=== PATIENT | male | born 1995 | race Caucasian/White ===

== ENCOUNTER 2016-11-08 15:07 | Observation (INO) | payer BC, OTHER ==
[2016-11-08] MEDS ORDERED: SODIUM CHLORIDE 0.9% 500 ML IV STA (17:10)
--- NOTE | 2016-11-08 17:13 | ED ---
General Adult HPI - General Chief complaint: Abdominal Pain Stated complaint: Poss bowel obstruction Time Seen by Provider: 11/08/16 15:30 Source: patient, RN notes reviewed Mode of arrival: ambulatory Limitations: no limitations - History of Present Illness Initial comments: This a 21-year-old male who was coming from [facility] I spoke with the ER physician there. Patient started having abdominal pain this morning became nauseated and vomited times one went to the hospital he told me he might have a small bowel disruption. The patient has had no previous surgeries no previous bowel problems. Patient states since that time he was released to be transferred here he drove by private car and he states the pain is much improved. Patient denies any nausea currently. Patient denies any diarrhea. Patient states he is still passing gas and a bowel movement this morning. Patient denies any fever chills. Patient denies any chest pain difficulty breathing shortness of breath. Patient denies any back pain. - Related Data Home Medications Medication Instructions Recorded Confirmed No Known Home Medications [No 11/08/16 11/08/16 Known Home Medications] Allergies Allergy/AdvReac Type Severity Reaction Status Date / Time No Known Allergies Allergy Verified 11/08/16 17:41 Review of Systems ROS Statement: Those systems with pertinent positive or pertinent negative responses have been documented in the HPI. ROS Other: All systems not noted in ROS Statement are negative. Past Medical History Past Medical History: No Reported History History of Any Multi-Drug Resistant Organisms: None Reported Past Surgical History: Ear Surgery Past Psychological History: No Psychological Hx Reported Smoking Status: Current every day smoker Past Alcohol Use History: Occasional Past Drug Use History: Marijuana General Exam - General Exam Comments Initial Comments: GENERAL: Patient is well-developed and well-nourished. Patient is nontoxic and well- hydrated and is in mild distress. ENT: Neck is soft and supple. No significant lymphadenopathy is noted. Oropharynx is clear. Moist mucous membranes. Neck has full range of motion without eliciting any pain. EYES: The sclera were anicteric and conjunctiva were pink and moist. Extraocular movements were intact and pupils were equal round and reactive to light. Eyelids were unremarkable. PULMONARY: Unlabored respirations. Good breath sounds bilaterally. No audible rales rhonchi or wheezing was noted. CARDIOVASCULAR: There is a regular rate and rhythm without any murmurs gallops or rubs. ABDOMEN: Soft and nontender with normal bowel sounds. No palpable organomegaly was noted. There is no palpable pulsatile mass. SKIN: Skin is clear with no lesions or rashes and otherwise unremarkable. NEUROLOGIC: Patient is alert and oriented x3. Cranial nerves II through XII are grossly intact. Motor and sensory are also intact. Normal speech, volume and content. Symmetrical smile. MUSCULOSKELETAL: Normal extremities with adequate strength and full range of motion. LYMPHATICS: No significant lymphadenopathy is noted PSYCHIATRIC: Normal psychiatric evaluation. Limitations: no limitations Course Vital Signs 11/08/16 11/08/16 15:29 17:32 Temperature 98.6 F Pulse Rate 78 60 Respiratory 20 16 Rate Blood Pressure 122/87 112/58 O2 Sat by Pulse 98 99 Oximetry Medical Decision Making - Medical Decision Making Patient's KUB did not show any signs of obstruction however the radiologist did look at the films from the other facility and agree that there was a possibility of this partial small bowel structures. I went back into reevaluate the patient his pain had returned and he was vomiting so is at this time that I spoke with Dr. Mejias he agreed to admit the patient I consult to [facility]. - Lab Data Result diagrams: 11/08/16 17:08 11/08/16 17:08 Lab Results 11/08/16 11/08/16 Range/Units 17:08 17:08 WBC 9.5 (3.8-10.6) k/uL RBC 4.90 (4.30-5.90) m/uL Hgb 15.7 (13.0-17.5) gm/dL Hct 44.4 (39.0-53.0) % MCV 90.5 (80.0-100.0) fL MCH 31.9 (25.0-35.0) pg MCHC 35.3 (31.0-37.0) g/dL RDW 12.5 (11.5-15.5) % Plt Count 219 (150-450) k/uL Neutrophils % 61 % Lymphocytes % 28 % Monocytes % 6 % Eosinophils % 2 % Basophils % 0 % Neutrophils # 5.8 (1.3-7.7) k/uL Lymphocytes # 2.7 (1.0-4.8) k/uL Monocytes # 0.6 (0-1.0) k/uL Eosinophils # 0.2 (0-0.7) k/uL Basophils # 0.0 (0-0.2) k/uL Sodium 139 (137-145) mmol/L Potassium 4.2 (3.5-5.1) mmol/L Chloride 106 (98-107) mmol/L Carbon Dioxide 24 (22-30) mmol/L Anion Gap 9 mmol/L BUN 12 (9-20) mg/dL Creatinine 0.90 (0.66-1.25) mg/dL Est GFR (MDRD) Af Amer >60 (>60 ml/min/1.73 sqM) Est GFR (MDRD) Non-Af >60 (>60 ml/min/1.73 sqM) Glucose 84 (74-99) mg/dL Calcium 9.7 (8.4-10.2) mg/dL Total Bilirubin 0.6 (0.2-1.3) mg/dL AST 20 (17-59) U/L ALT 35 (21-72) U/L Alkaline Phosphatase 55 (38-126) U/L Total Protein 6.7 (6.3-8.2) g/dL Albumin 4.3 (3.5-5.0) g/dL Amylase 72 (30-110) U/L Lipase 134 (23-300) U/L Disposition Clinical Impression: Partial small bowel obstruction Disposition: ADMITTED IP TO THIS [facility] Referrals: Tre Mejias MD [Primary Care Provider] - 1-2 days Time of Disposition: 18:39
[2016-11-08 17:19] LABS: Basophils % (A) 0 %; CH 31.7; CHCM 35.1; Eosinophils # (A) 0.2 k/uL (0-0.7); Eosinophils % (A) 2 %; HCT 44.4 % (39.0-53.0); HDW 2.43; HGB 15.7 gm/dL (13.0-17.5); Luc # (Auto) 0.23; Luc % (Auto) 2; Lymphocytes # (A) 2.7 k/uL (1.0-4.8); Lymphocytes % (A) 28 %; MCH 31.9 pg (25.0-35.0); MCHC 35.3 g/dL (31.0-37.0); MCV 90.5 fL (80.0-100.0); Mean Platelet Volume 6.8; Monocytes # (A) 0.6 k/uL (0-1.0); Monocytes % (A) 6 %; Neutrophils # (A) 5.8 k/uL (1.3-7.7); Neutrophils % (A) 61 %; RDW 12.5 % (11.5-15.5); WBC 9.5 k/uL (3.8-10.6); WBC (Perox) 9.56
[2016-11-08 17:46] LABS: ALT 35 U/L (21-72); AST 20 U/L (17-59); Alkaline Phosphatase 55 U/L (38-126); Amylase 72 U/L (30-110); Anion Gap 9 mmol/L; Blood Urea Nitrogen 12 mg/dL (9-20); Calcium 9.7 mg/dL (8.4-10.2); Carbon Dioxide 24 mmol/L (22-30); Chloride 106 mmol/L (98-107); Glucose 84 mg/dL (74-99); Non-African American GFR(MDRD) >60 (>60 ml/min/1.73 sqM); Sodium 139 mmol/L (137-145); Total Bilirubin 0.6 mg/dL (0.2-1.3); Total Protein 6.7 g/dL (6.3-8.2)
[2016-11-08 17:49] LABS: Potassium 4.2 mmol/L (3.5-5.1)
--- NOTE | 2016-11-08 17:49 | XR ---
EXAMINATION TYPE: XR KUB DATE OF EXAM: 11/08/2016 COMPARISON: NONE HISTORY: Nausea and vomiting TECHNIQUE: 2 views FINDINGS: There is no sign of intestinal obstruction or pneumoperitoneum. There is contrast in the ri ght upper collecting system. Bladder is filled with contrast. There is no sign of obstruction on the left side. Lung bases are clear. Bony structures are intact. IMPRESSION: There is some holdup of contrast in the right upper renal collecting system compared to t he left. This CT scan from today at [facility] shows no hydronephrosis. I think this finding i s of doubtful significance. There are some fluid-filled dilated small bowel loops in the midabdomen o n the CT scan that are not demonstrated by this plain x-ray exam today.
[2016-11-08] MEDS ORDERED: KETOROLAC 60 MG/2 ML VIAL IVP STA (18:04)
[2016-11-08] MEDS ORDERED: SODIUM CHLORIDE 0.9% 1,000 ML IV ONE (18:41)
[2016-11-08 19:41] VITALS: RESP 16
[2016-11-08] MEDS: ONDANSETRON 4 MG/2 ML VIAL IVP PRN (20:01)
[2016-11-08] MEDS ORDERED: HYDROmorphone 1 MG/ML 1 ML SYRINGE IVP PRN (20:18)
[2016-11-08] MEDS: HYDROmorphone 1 MG/ML 1 ML SYRINGE IVP PRN (20:28)
[2016-11-08 21:38] VITALS: BMI 24.3
[2016-11-09] MEDS: ONDANSETRON 4 MG/2 ML VIAL IVP PRN (00:10)
[2016-11-09] MEDS: HYDROmorphone 1 MG/ML 1 ML SYRINGE IVP PRN ×4 (04:10→10:28)
[2016-11-09 07:56] VITALS: BP 101/60; PULSE 56; TEMP 98.3
--- NOTE | 2016-11-09 10:53 | P.HPIM ---
History of Present Illness 21-year-old male had an acute onset of generalized abdominal pain yesterday at 6 :30 in the morning. Was seen at [facility]. They transferred him to our emergency department with report of possible small bowel obstruction. Patient has no history of surgery or history of abdominal pain Review of Systems Gastrointestinal: Reports abdominal pain Past Medical History Past Medical History: No Reported History Additional Past Medical History / Comment(s): Heart palpatations age 12. History of Any Multi-Drug Resistant Organisms: None Reported Past Surgical History: Ear Surgery Past Anesthesia/Blood Transfusion Reactions: No Reported Reaction Past Psychological History: No Psychological Hx Reported Smoking Status: Current every day smoker Past Alcohol Use History: Occasional Past Drug Use History: Marijuana Medications and Allergies Home Medications Medication Instructions Recorded Confirmed Type No Known Home Medications [No 11/08/16 11/08/16 History Known Home Medications] Allergies Allergy/AdvReac Type Severity Reaction Status Date / Time No Known Allergies Allergy Verified 11/08/16 17:41 Physical Exam Vitals: Vital Signs Temp Pulse Pulse Resp BP BP Pulse Ox 11/09/16 07:56 98.3 F 56 L 16 101/60 99 11/09/16 04:00 16 11/09/16 00:00 97.8 F 82 16 116/59 100 11/08/16 23:38 16 11/08/16 19:40 98.3 F 67 16 133/77 99 11/08/16 19:04 98.0 F 62 18 119/77 98 11/08/16 17:32 60 16 112/58 99 11/08/16 15:29 98.6 F 78 20 122/87 98 Intake and Output 11/08/16 11/09/16 11/09/16 22:59 06:59 14:59 Intake Total 500 Balance 500 Intake: Amount of Fluid Infused ( 500 ml) Other: Voiding Method Toilet Toilet # Voids 2 Weight 72.575 kg 72.575 kg - Constitutional General appearance: mild distress - EENT Eyes: PERRLA Ears: left: normal - Neck Neck: normal ROM - Respiratory Respiratory: bilateral: CTA - Cardiovascular Rhythm: regular - Gastrointestinal General gastrointestinal: soft Localized gastrointestinal: tender: diffuse - Integumentary Integumentary: normal - Neurologic Neurologic: CNII-XII intact - Musculoskeletal Musculoskeletal: gait normal - Psychiatric Psychiatric: A&O x's 3, appropriate affect, intact judgment & insight Results CBC & Chem 7: 11/08/16 17:08 11/08/16 17:08 Abdominal x-ray: report reviewed Assessment and Plan Plan: Assessment Abdominal pain possible partial small bowel obstruction Negative medical history Plan Ultrasound of abdomen Consultation with Dr. Randell Chang regarding abdominal pain
--- NOTE | 2016-11-09 11:01 | US ---
EXAMINATION TYPE: US abdomen limited DATE OF EXAM: 11/09/2016 COMPARISON: NONE CLINICAL HISTORY: Evaluate the gallbladder. Possible small bowel obstruction EXAM MEASUREMENTS: Liver Length: 15.4 cm Gallbladder Wall: 0.1 cm CBD: 0.5 cm CHD: 0.4 cm Right Kidney: 10.3 x 4.5 x 4.5 cm Pancreas: wnl Liver: wnl Gallbladder: wnl Evidence for sonographic Riggs's sign: neg CBD: wnl CHD: wnl Right Kidney: wnl IMPRESSION: 1. No acute process.
--- NOTE | 2016-11-09 12:21 | P.GSCN ---
History of Present Illness Consult date: 11/09/16 Reason for Consult: Abdominal pain History of present illness: 21-year-old male being seen at the request of the attending for surgical eval after patient presented with a chief complaint of experiencing a sudden onset of nausea vomiting and abdominal pain patient stated he had not experienced that type of pain before. Patient states he was at work when it occurred it caused intense abdominal pain. Patient states he went to [facility] where he was seen where patient had films at the facility there was a question whether could be a possibility of a partial small bowel obstruction. Patient was advised to be seen at [facility]. Patient had a KUB done in the emergency room here at [facility] in summary some fluid dilated small bowel loops in the mid abdomen on the CAT scan that were not demonstrated by these plain x-ray that was done at this facility the KUB showed no acute findings. There was no significant obstruction on the left side the lung bases were clear patient did undergo a ultrasound of the gallbladder which was an unremarkable study patient denied any diarrhea stated he was passing gas and stated he had a bowel movement on the day of the event. Denied any fever chills. Denied any shortness of breath. Review of Systems Essentially unremarkable except as mentioned in the present illness Past Medical History Past Medical History: No Reported History Additional Past Medical History / Comment(s): Heart palpatations age 12. History of Any Multi-Drug Resistant Organisms: None Reported Past Surgical History: Ear Surgery Past Anesthesia/Blood Transfusion Reactions: No Reported Reaction Past Psychological History: No Psychological Hx Reported Smoking Status: Current every day smoker Past Alcohol Use History: Occasional Past Drug Use History: Marijuana Medications and Allergies Home Medications Medication Instructions Recorded Confirmed Type No Known Home Medications [No 11/08/16 11/08/16 History Known Home Medications] Allergies Allergy/AdvReac Type Severity Reaction Status Date / Time No Known Allergies Allergy Verified 11/08/16 17:41 Surgical - Exam Vital Signs Temp Pulse Resp BP Pulse Ox 98.6 F 78 20 122/87 98 11/08/16 15:29 11/08/16 15:29 11/08/16 15:29 11/08/16 15:29 11/08/16 15:29 GENERAL APPEARANCE: Pleasant 21-year-old male patient is alert, oriented, in no acute distress. VITAL SIGNS: Reviewed HEENT: Head is normocephalic and atraumatic. Pupils are equal and reactive. The nares are patent. Oropharynx is clear without lesions. NECK: Supple without lymphadenopathy. Traches midline. HEART: S1, S2. Regular rate and rhythm. No murmur noted denying chest pain LUNGS: No crackles or wheezes are heard. Adequate air movement bilaterally on room air ABDOMEN: Soft, nontender, nondistended with good bowel sounds. No peritoneal signs. No palpable organomegaly or masses. Reports no nausea vomiting no frequent stooling no difficulty in urinating EXTREMITIES: Normal skin color and turgor. No cyanosis, rash, ulceration, clubbing or edema. Radial pedal pulses are 2/4 bilaterally. NEUROLOGICAL: No focal deficits. Strength and sensation are grossly intact. Results - Labs 11/08/16 17:08 11/08/16 17:08 Diabetes panel 11/08/16 Range/Units 17:08 Sodium 139 (137-145) mmol/L Potassium 4.2 (3.5-5.1) mmol/L Chloride 106 (98-107) mmol/L Carbon Dioxide 24 (22-30) mmol/L BUN 12 (9-20) mg/dL Creatinine 0.90 (0.66-1.25) mg/dL Glucose 84 (74-99) mg/dL Calcium 9.7 (8.4-10.2) mg/dL AST 20 (17-59) U/L ALT 35 (21-72) U/L Alkaline Phosphatase 55 (38-126) U/L Total Protein 6.7 (6.3-8.2) g/dL Albumin 4.3 (3.5-5.0) g/dL Calcium panel 11/08/16 Range/Units 17:08 Calcium 9.7 (8.4-10.2) mg/dL Albumin 4.3 (3.5-5.0) g/dL Pituitary panel 11/08/16 Range/Units 17:08 Sodium 139 (137-145) mmol/L Potassium 4.2 (3.5-5.1) mmol/L Chloride 106 (98-107) mmol/L Carbon Dioxide 24 (22-30) mmol/L BUN 12 (9-20) mg/dL Creatinine 0.90 (0.66-1.25) mg/dL Glucose 84 (74-99) mg/dL Calcium 9.7 (8.4-10.2) mg/dL Adrenal panel 11/08/16 Range/Units 17:08 Sodium 139 (137-145) mmol/L Potassium 4.2 (3.5-5.1) mmol/L Chloride 106 (98-107) mmol/L Carbon Dioxide 24 (22-30) mmol/L BUN 12 (9-20) mg/dL Creatinine 0.90 (0.66-1.25) mg/dL Glucose 84 (74-99) mg/dL Calcium 9.7 (8.4-10.2) mg/dL Total Bilirubin 0.6 (0.2-1.3) mg/dL AST 20 (17-59) U/L ALT 35 (21-72) U/L Alkaline Phosphatase 55 (38-126) U/L Total Protein 6.7 (6.3-8.2) g/dL Albumin 4.3 (3.5-5.0) g/dL Assessment and Plan Plan: Impression Present on admission sudden onset abdominal pain with nausea vomiting suspect viral gastroenteritis resolved Present on admission bilateral groin weakness possible small inguinal hernias right greater than left KUB showed no signs of obstruction Ultrasound of the gallbladder no acute process Plan No evidence of an acute surgical abdomen No further surgical intervention indicated From a surgical perspective patient would be felt appropriate to be discharged defer to the timing of the discharge to medicine Will see the patient on an as-needed basis as clinical course warrants Thank you for allowing us to participate in the surgical management of your patient The above impression and plan of care have been discussed and directed by signing physician. Hilaria Azul nurse practitioner acting as scribe for signing physician.
--- NOTE | 2016-11-09 13:59 | P.DS ---
Providers Date of admission: 11/08/16 18:41 Expected date of discharge: 11/09/16 Attending physician: Tre Mejias Consults: 11/08/16 18:41 Consult Physician Urgent Consulting Provider: [facility] Consult Reason/Comments: Partial small bowel Do you want consulting provider notified?: Yes Primary care physician: Tre Mejias Hospital Course: 21-year-old male was sent from [facility] urgent care to the emergency center for on possible a partial small bowel obstruction. Patient had abdominal x-ray not demonstrating that. Patient had a consultation with the surgeon and cleared for discharge. Plan for patient to follow up with family physician Assessment abdominal pain small bowel obstruction ruled out gastroenteritis Plan follow up with family physician Patient Condition at Discharge: Good Plan - Discharge Summary New Discharge Prescriptions: No Action No Known Home Medications [No Known Home Medications] Discharge Medication List No Known Home Medications [No Known Home Medications] 11/08/16 [History] Follow up Appointment(s)/Referral(s): Tre Mejias MD [Primary Care Provider] - 1-2 days Patient Instructions/Handouts: Acute Abdominal Pain (GEN) Activity/Diet/Wound Care/Special Instructions: Patient will need to call the doctor's office with updated health insurance information and then an appointment can be made for follow up from the hospital visit. Discharge Disposition: HOME SELF-CARE
== END 2016-11-09 14:15 | disposition home or self-care (01) ==
LOC: EC 15:07 → 3OBS 18:41
PROVIDERS: ADMIT Family Medicine; ATTEND Family Medicine
DX: R10.84 Generalized abdominal pain (principal); K52.9 Noninfective gastroenteritis and colitis, unspecified; F17.200 Nicotine dependence, unspecified, uncomplicated
CPT/HCPCS: 99285; 96374; 96361 ×4; 96375; 96376; 36415; 80053; 82150; 83690; 85025; 74000; 76705; G0378 ×2; J2405 ×2; J1885; J1170 ×2

== ENCOUNTER → 2019-04-08 | Outpatient (CLI) | payer BC ==
--- NOTE | 2019-04-08 13:47 | US ---
EXAMINATION TYPE: US groin RT DATE OF EXAM: 04/08/2019 COMPARISON: NONE CLINICAL HISTORY: K40.90 right inguinal hernia. TECHNIQUE/FINDINGS: Targeted grayscale imaging was performed of the right groin with and without Vals hopper to evaluate for hernia. Possible right inguinal hernia defect on Valsalva on image 18 and . Remainder the right groin is unremarkable sonographically. IMPRESSION: Possible small right inguinal hernia seen with Valsalva. This could be confirmed by CT.
== END | disposition home or self-care (01) ==
LOC: RADUSWWP 13:09
PROVIDERS: ATTEND Family Medicine
DX: K40.90 Unilateral inguinal hernia, without obstruction or gangrene, not specified as recurrent (principal)